=== PATIENT | male | born 1985 | race Caucasian/White ===

== ENCOUNTER 2021-06-04 21:48 | Emergency (ER) | payer SELFPAY ==
[2021-06-04 21:54] VITALS: BP 184/94; PULSE 88; RESP 20; TEMP 36.8; O2SAT 98
--- NOTE | 2021-06-04 21:59 | ED.GENADUL_ITS ---
Discharge Plan Disposition Patient Disposition: HOME Condition: Improving Discharge Details Clinical Impression: Fracture of tooth, Dental infection Primary Care Provider: Unknown,Unknown ED Provider: Pam Jackson Home Meds and New Rx's Prescriptions: New clindamycin HCl 150 mg capsule 450 mg PO TID 6 Days Qty: 54 RF: 0 Continued No Daily Medications RF: 0 diphenhydramine HCl 50 mg Capsule 100 mg PO PRN PRNRF: 0 naproxen sodium [Aleve] 220 mg Tablet 220 mg PO Q8H PRNRF: 0 Discharge Instructions Instructions: Clindamycin (By mouth), Dental Abscess (ED) Additional Instructions: Your history and exam are concerning for dental infection on top of your broken tooth. Please encourage hydration. Tylenol and/or ibuprofen as needed for discomfort. Please call dentist tomorrow to schedule follow-up appointment for definitive care. Please take the antibiotics as prescribed. Even if symptoms improve, please take the entire course. Pay close attention to dosing. You are being sent home with dosing for tomorrow morning. If you develop fever/chills, inability to swallow, increased pain or other new/worsening symptoms please seek care urgently once again. Otherwise, please follow-up with your dentist as soon as possible for reevaluation. Discharge Data Discharge Date/Time-TO BE ENTERED AT DEPARTURE: 06/04/21 22:45 Medical Decision Making Patient is a pleasant 36 year old male presenting today with c/c of left upper dental pain that began this afternoon at 4pm. States that he has had a fractured tooth, unclear how long. No recent trauma. States that pain has progressively been worsening. Denies fevers/chills. On exam, patient appears uncomfortable. Nontoxic. Fractured upper back molar. Buccal sided discomfort. Erythema, no swelling or fluctuance. No lymphadenopathy. Normal posterior oropharynx. Concerned for developing infection based on history. Will treat with abx. He has dentist in [place], he has not contacted them yet. Has been using NSAID with no relief. Allergy to Penicillin. Patient I discussed risk/benefits as well as procedural steps associated with dental block. She voiced understanding and wished to proceed. Please see procedure note. Patient tolerated this well. Had immediate relief with comfort. We did discuss safe dosage of Tylenol and ibuprofen. Encourage hydration. He will call his local dentist tomorrow to schedule follow-up appointment. Return precautions were discussed. We will give first dose of antibiotics here as well as dosing for tomorrow morning. All of his questions and concerns were addressed and he is in agreement with this plan. HPI General Mode of arrival: ambulatory . Date/Time Provider Initiated Documentation: 06/04/21 21:48 . Limitations to Documentation: no limitations . Information obtained by: patient and RN notes reviewed . History of Present Illness 36 year old M presents to the emergency department with the chief complaint of broken left upper tooth, described as severe, with intensity rated at 10. Quality is described as aching, and is localized to the mouth. Patient reports no radiation. Patient started experiencing this hour(s) and it has been constant. No relieving factors improve symptom(s), No exacerbating factors reported . Patient notes no other symptoms.. Patient did receive the following treatments prior to arrival, NSAID Related Data Home Medications Medication Instructions Recorded Confirmed No Daily Medications 04/21/13 clindamycin HCl 450 mg PO TID 6 Days #54 cap 06/04/21 diphenhydramine HCl 100 mg PO PRN PRN 06/04/21 06/04/21 naproxen sodium [Aleve] 220 mg PO Q8H PRN 06/04/21 06/04/21 Previous Rx's Medication Instructions Recorded clindamycin HCl 450 mg PO TID 6 Days #54 cap 06/04/21 Allergies Allergy/AdvReac Type Severity Reaction Status Date / Time Penicillins Allergy Unknown Childhood Unverified 07/26/13 15:35 reaction General Stated Complaint: DentalOral ELZA: 5 Review of Systems Constitutional Constitutional: Reports as per HPI, Denies chills, Denies fever(s) and Denies headache(s) ENT Ears, Nose, Mouth, and Throat: Reports as per HPI, Reports dental pain, Denies dry mouth, Denies ear discharge, Denies otalgia, Denies headache(s), Denies hoarseness, Denies lip swelling, Denies nasal congestion and Denies sore throat Integumentary/Breasts Skin/Breast: Reports as per HPI, Denies erythema, Denies rash and Denies skin pain Neurologic Neurologic: Reports as per HPI and Denies headache(s) Allergic/Immunologic Allergic/Immunologic: Denies lip swelling PFSH Social History Smoking/Tobacco Use Status: Never Smoking risk assessment performed?: Yes Alcohol Intake: never Drug use: Never Substance use type: does not use Do you feel safe at home: Yes Do you feel safe in your relationship?: Yes Exam Const General: cooperative, healthy appearing, uncomfortable, no acute distress, well developed and well groomed Nutritional Appearance: average body habitus and well nourished Orientation: alert and awake [facility] Head: normal to inspection, normocephalic and atraumatic Ears: hearing grossly normal bilaterally, external ears normal and TM's normal bilaterally General nose exam: external nose normal and nares normal Face and sinus: normal facial exam, sinuses nontender and face symmetric Mouth: oral mucosae normal, lip normal, tongue normal, no drooling, no muffled voice, normal tongue, no trismus and No restricted motion Teeth and gingiva: fair dentition (fractured posterior 15, pain buccally) Throat: posterior oropharynx normal, tonsils normal and uvula midline Eyes General: appearance normal, both eyes and all related structures Neck Neck: normal visual inspection, full ROM, no lymphadenopathy, supple and no anterior neck swelling Resp Effort & Inspection: normal respiratory effort, able to speak in complete sentences and no respiratory distress Auscultation: no rales Cardio Rate: regular rate Rhythm: regular rhythm Skin General skin exam: no rashes or lesions noted Trauma: no lacerations or abrasions Neuro General: patient alert and patient awake Cognition: normal cognition Speech: speech normal Gait: normal gait Psych Appearance: grossly normal and well kempt Mental Status: mental status grossly normal Speech and Movement: speech and movement normal Course Vital Signs Vital signs: Vital Signs Temperature 36.8 C 06/04/21 21:54 Pulse 88 06/04/21 21:54 Respiratory Rate 06/04/21 21:54 Blood Pressure 184/94 H 06/04/21 21:54 Pulse Oximetry 98 06/04/21 21:54 Temperature 36.8 C 06/04/21 21:54 Temperature Source Temporal Artery Scan 06/04/21 21:54 Pulse 88 06/04/21 21:54 Respiratory Rate 20 06/04/21 21:54 Blood Pressure 184/94 H 06/04/21 21:54 Blood Pressure Position Sitting 06/04/21 21:54 Pulse Oximetry 98 06/04/21 21:54 Oxygen Delivery Method Room Air 06/04/21 21:54 Oxygen Flow Rate 0 06/04/21 21:54 Pain Level 10 06/04/21 21:54 Procedures Nerve Block Nerve Block 1: Time out performed: Yes Local Anesthetic: Lidocaine 1% and Bupivicaine 0.5% Amount of anesthesia used (mL): 2 Side: left Intraoral Nerve Block: superior alveolar Procedure Successful: Yes Patient Tolerated Procedure: well and no complications Complications: none
[2021-06-04] MEDS: Clindamycin 150 MG CAP 450 MG PO ×2 (22:41)
== END 2021-06-04 22:45 | disposition home or self-care (01) ==
PROVIDERS: Emergency Provider Physician Assistant
DX: K04.7 Periapical abscess without sinus (principal); S02.5XXA Fracture of tooth (traumatic), initial encounter for closed fracture; X58.XXXA Exposure to other specified factors, initial encounter
CPT/HCPCS: 64400